=== PATIENT | female | born 1990 | race Caucasian/White ===

== ENCOUNTER 2016-11-26 19:37 | Emergency (ER) | payer OTHER ==
[2016-11-26 20:04] LABS: BASOPHIL# 0.3 X 10^3uL (0.0-0.1); BASOPHILS 2.6 % (0.0-2.0); EOSINOPHILS 1.6 % (0.0-6.0); EOSINOPHILS# 0.2 X 10^3uL (0.0-0.4); HEMATOCRIT 43.3 % (36.0-48.0); HEMOGLOBIN 15.1 g/dL (12.0-16.0); LYMPHOCYTES 19.1 % (20.0-40.0); MEAN CELL VOLUME 94.2 fL (80.0-100.0); MEAN CORPUSCULAR HEMOGLOBIN 32.9 pg (29.0-35.0); MEAN PLATELET VOLUME 9.9 fL (7.4-10.4); MONOCYTES 4.2 % (2.0-10.0); MONOCYTES# 0.4 X 10^3uL (0.2-1.0); NEUTROPHILS 72.5 % (54.0-75.0); NEUTROPHILS# 7.5 X 10^3uL (2.6-6.7); PLATELET COUNT 342 X 10^3uL (130-440); RED CELL DISTRIBUTION WIDTH 12.5 % (11.5-14.5); WHITE BLOOD COUNT 10.4 X 10^3uL (3.9-10.7)
--- NOTE | 2016-11-26 20:05 | RADIOLOGY REPORT ---
A limited single portable view of the chest demonstrates the heart and vessels to be unremarkable. Lung bishop are clear. IMPRESSION: Unremarkable limited single portable view of the chest. MTDD
[2016-11-26 20:16] LABS: BLOOD UREA NITROGEN 11 mg/dL (7-17); CALCIUM 9.2 mg/dL (8.4-10.2); CHLORIDE 107 mmol/L (98-107); EST GLOMERULAR FILTRATION RATE > 60 mL/min; GLUCOSE 129 mg/dL (70-100); MAGNESIUM 2.2 mg/dL (1.6-2.3); POTASSIUM 3.7 mmol/L (3.5-5.1); SODIUM 141 mmol/L (137-145)
[2016-11-26 20:28] LABS: TROPONIN I < 0.012 ng/mL (0.00-0.034)
--- NOTE | 2016-11-26 20:56 | ER NURSING DOCUMENTATION ---
Nurse's Notes [facility] Name:Kayli Singh Age:25 yrs Sex:Female :1990 Arrival Date:11/26/2016 Time:19:37 BedTrauma-C Private MD: Diagnosis:Chest Pain, Other Presentation: 11/26 19:38 Transition of care: patient was not received from another setting of care. AIR CAT nf ACTIVATION no. Risk considerations: negative evaluation for symptoms or risks of deep vein thrombosis or pulmonary embolism. Notified ED Physician of patient's arrival and CC Teodoro Foy notified. Care prior to arrival: None. 19:38 Method Of Arrival: Private Vehicle nf 19:38 Acuity: VALDO 2 nf 19:38 Asprin Given n/a. nf 19:38 Presenting complaint: Patient states: intermittent substernal and epigastric chest pain nf x3 weeks, mostly occurring with exercise, today felt like she could not begin a run due to pain, denies dyspnea and diaphoresis and indigestion. Triage Assessment: 19:38 Pain: Complains of pain in substernal and epigastric. Neuro: No deficits noted. nf Cardiovascular: Capillary refill < 3 seconds Rhythm is sinus rhythm. Respiratory: Respiratory effort is even, unlabored, Respiratory pattern is regular. GI: Denies indigestion, nausea, vomiting. : No deficits noted. 19:40 General: Appears in no apparent distress, well nourished, well groomed, Behavior is nf pleasant. Historical: - Allergies: No known Allergies; - Home Meds: 1. None - PMHx: None; - PSHx: KNEE SURGERY; - Tetanus: Other NA. - Ebola Screening: : No symptoms or risks identified at this time. . - Immunization history: NA. - Social history: Smoking status: Patient states was never smoker of tobacco. Screenin:43 Infectious Disease Risk None. Abuse screen: Denies threats or abuse. Nutritional nf screening: No deficits noted. Assessment: 19:38 See Triage Assessment done by same RN. Pain: Pain does not radiate. Pain began nf intermittent x3 weeks. Cardiovascular: Denies fatigue, lightheadedness, palpitations, syncope. Respiratory: Denies shortness of breath at rest. 20:19 Reassessment: Patient states feeling better. Patient states symptoms have improved. nf resting quietly and denies needs. Vital Signs: 19:40 BP 129 / 75; Pulse 98; Resp 16; Temp 98.3(O); Pulse Ox 92% on R/A; Weight 56.7 kg; nf Height 5 ft. 4 in. (162.56 cm); Pain 7/10; 20:47 BP 107 / 69; Pulse 81; Resp 12; Pulse Ox 97% on R/A; Pain 0/10; nf 19:40 Body Mass Index 21.46 (56.70 kg, 162.56 cm) ED Course: 19:37 Patient arrived in ED. va1 19:37 EKG done. Reviewed by Bob Valerio MD. nf 19:39 Triage completed. 19:39 Inserted peripheral IV: 20 gauge in right antecubital area and blood collected. rh 19:42 Arm band placed on Bed in low position Call Light in Reach Gowned HOB Elevated Side nf rails up x1. 19:43 Valuables Remains with patient Patient has correct armband on for positive rh identification. Bed in low position. Call light in reach. Side rails up X 1. property assessment monitor on. Pulse ox on. NIBP on. 19:43 Valuables Remains with patient. Door closed. Noise minimized. Lights dimmed. Moved to private room. Verbal reassurance given. Warm blanket given. Pillow given. 19:49 Bob Valerio MD is Attending Physician. 19:52 Sarina Nance, RN is Primary Nurse. 20:47 EKG attached nf Administered Medications: No medications were administered Outcome: 20:30 Discharge ordered by . 20:51 Discharged to home ambulatory. 20:51 Condition: good 20:51 Discharge Assessment: Patient awake, alert and oriented x 3. No cognitive and/or functional deficits noted. Patient verbalized understanding of disposition instructions. 20:51 Discharge instructions given to patient, Instructed on discharge instructions, follow up and referral plans. medication usage, Demonstrated understanding of instructions, medications. 20:51 IV D/Phi 20:56 Patient left the ED. 11/27 20:08 Discharge F/U Call: Unable to reach: left voicemail: [email or web address] Signatures: Sarina Nance, Bob Sarmiento RN, MD MD jm Kruger, Meg, RN RN 2 Latosha Cintron Charo [facility]
--- NOTE | 2016-11-26 20:56 | ER PHYSICIAN DOCUMENTATION ---
Physician Documentation [facility] Name:Kayli Singh Age:25 yrs Sex:Female :1990 Arrival Date:11/26/2016 Time:19:37 BedTrauma-C Private MD: Bob Waterman Disposition: 11/26/16 20:30 Discharged to Home/Self Care. Impression: Chest Pain, Other. - Condition is Good. - Discharge Instructions: Chest Pain - CHEST PAIN, Uncertain Cause. - Medical Reconciliation form form. - Follow up: Private Physician; When: As needed; Reason: Continuance of care. - Problem is new. - Symptoms have improved. HPI: 11/26 20:00 This 25 yrs old Female presents to ER via Private Vehicle with complaints of jm Chest Pain. 20:00 The patient or guardian reports chest pain that is located primarily in the substernal jm area. The pain does not radiate. There has been no movement of pain. Associated signs and symptoms: Pertinent negatives: diaphoresis, lightheadedness, nausea, shortness of breath. The chest pain is described as sharp. Duration: The patient or guardian reports multiple episodes, that have now resolved. Modifying factors: the symptoms are aggravated by breathing, deep breath. Severity of pain: in the emergency department the pain has improved. The risk factors for pulmonary embolism include: This patient takes oral control pills. The patient has not experienced similar symptoms in the past. The patient has not recently seen a physician. Pt was about to go on a run when the pain started. She's been dealing w this on and off pain for months, but today it was worse. . Historical: - Allergies: No known Allergies; - Home Meds: 1. None - PMHx: None; - PSHx: KNEE SURGERY; - Tetanus: Other NA. - Ebola Screening: : No symptoms or risks identified at this time. . - Immunization history: NA. - Social history: Smoking status: Patient states was never smoker of tobacco. ROS: 20:00 Constitutional: Negative for fatigue, fever. jm 20:00 ENT: Negative for sinus congestion, sinus pain, sore throat. 20:00 Cardiovascular: Positive for chest pain. jm 20:00 Respiratory: Negative for cough, shortness of breath. 20:00 Abdomen/GI: Negative for abdominal pain, nausea, vomiting, diarrhea. 20:00 Skin: Negative for rash, swelling. 20:00 Neuro: Negative for dizziness, weakness. 20:00 All other systems are negative. Exam: 20:00 Constitutional: The patient appears alert, awake, comfortable. 20:00 Eyes: Periorbital structures: appear normal, Conjunctiva: normal. 20:00 ENT: Mouth: is normal, Voice: is normal. 20:00 Neck: Thyroid: appears normal, Trachea: is midline with no obvious abnormalities. 20:00 Chest/axilla: Inspection: normal, Palpation: is normal. 20:00 Cardiovascular: Rate: normal, Rhythm: regular, Pulses: no pulse deficits are appreciated. 20:00 Respiratory: Respirations: normal, Breath sounds: are normal. 20:00 Abdomen/GI: Bowel sounds: normal, Palpation: abdomen is soft and non-tender. 20:00 Musculoskeletal/extremity: DVT Exam: No signs of deep vein thrombosis. Calves: are non-tender, have equal circumference. 20:00 Skin: Appearance: Color: pink, lesion(s), are not present. 20:00 Neuro: Mentation: is normal, Memory: is normal. 20:00 Psych: Behavior/mood is pleasant, cooperative, Affect is calm. Vital Signs: 19:40 BP 129 / 75; Pulse 98; Resp 16; Temp 98.3(O); Pulse Ox 92% on R/A; Weight 56.7 kg; nf Height 5 ft. 4 in. (162.56 cm); Pain 7/10; 20:47 BP 107 / 69; Pulse 81; Resp 12; Pulse Ox 97% on R/A; Pain 0/10; nf 19:40 Body Mass Index 21.46 (56.70 kg, 162.56 cm) nf MDM: 19:49 Patient medically screened. 20:47 EKG attached nf 22:07 Differential diagnosis: acute myocardial infarction, acute pericarditis, anxiety, chest jm wall pain, pulmonary embolus. The patient was not given aspirin in the Emergency Department. Data reviewed: vital signs, nurses notes, lab test result(s), EKG, radiologic studies, and as a result, I will discharge patient. Test interpretation: by ED physician or midlevel provider: none. Counseling: I had a detailed discussion with the patient and/or guardian regarding: the historical points, exam findings, and any diagnostic results supporting the discharge/admit diagnosis, lab results, radiology results, the need for outpatient follow up, with the patient's primary care provider. ECG:. ED course: w/u negative for acute causes of CP. Pt has f/u w PCP in a few weeks, so she will RTED if pain gets worse, but otherwise wait for that appointment. . 11/26 20:26 Order name: CBC AUTO DIF, MDIF/RMOR IF IND; Complete Time: : [facility] 11/26 20:27 Order name: DDIMER; Complete Time: : [facility] 11/26 20:28 Order name: BASIC METABOLIC PANEL; Complete Time: : [facility] 11/26 20:28 Order name: MAGNESIUM; Complete Time: : [facility] 11/26 20: Order name: TROPONIN I; Complete Time: : [facility] 11/26 21:59 Order name: CHEST; [place] [id number] [facility] 11/26 19:47 Order name: 12-lead EKG; Complete Time: :49 11/26 19:47 Order name: Iv Saline Lock; Complete Time: :49 11/26 19:47 Order name: Place Patient On Monitor; Complete Time: 19:49 nf 11/26 19:47 Order name: Pulse Ox Continuous; Complete Time: 19:49 nf EC:07 Rhythm is regular. QRS [place] is Normal. TN interval is normal. QRS interval is normal. jm QT interval is normal. No Q waves. T waves are Normal. No ST changes noted. Dispensed Medications: No medications were administered Signatures: Sarina Nance RN RN nf Meyer, John, MD MD jm
== END 2016-11-26 20:56 | disposition home or self-care (01) ==
LOC: ER 19:37
DX: R07.89 Other chest pain (principal)
CPT/HCPCS: 71010; 80048; 83735; 84484; 85025; 85379; 93005; 99284